=== PATIENT | female | born 1970 ===

== ENCOUNTER 2017-01-19 12:48 | Emergency (ER) | payer BC ==
--- NOTE | 2017-01-19 16:30 | UC ---
Henry Garland Benjamin, scribed for Alexander Enriquez MD on 01/19/17 at 1522 . Respiratory Complaint HPI - HPI Summary HPI Summary: 46 yo female c/o sinus pressure, behind her eyes. Pt also reports feeling weak, nauseous, and coughing up yellow phlegm. Denies fever, chills, or sore throat. Pt has sinus infections with similar symptoms twice before. - History of Current Complaint Chief Complaint: UCRespiratory Stated Complaint: SINUS/FACIAL PAIN, NAUSEAUS Time Seen by Provider: 01/19/17 14:56 Hx Obtained From: Patient Onset/Duration: Sudden Onset, Lasting Days, Still Present Severity Initially: Mild Severity Currently: Moderate Character: Cough: Productive - yellow Aggravating Factors: Nothing Alleviating Factors: Nothing Associated Signs And Symptoms: Positive: Nasal Congestion, Sinus Discomfort. Negative: Fever, Chills - Allergies/Home Medications Allergies/Adverse Reactions: Allergies Allergy/AdvReac Type Severity Reaction Status Date / Time No Known Allergies Allergy Verified 01/19/17 13:38 Home Medications: Home Medications Losartan Potassium [Cozaar] 50 mg PO 01/19/17 [History] PMH/Surg Hx/FS Hx/Imm Hx Previously Healthy: Yes - Surgical History Surgical History: None - Family History Known Family History: Positive: None Negative: Cardiac Disease, Hypertension, Diabetes - Social History Alcohol Use: Rare Substance Use Type: None Smoking Status (MU): Never Smoked Tobacco Review of Systems Constitutional: Negative Skin: Negative Eyes: Negative ENT: Nasal Discharge, Sinus Congestion, Sinus Pain/Tenderness Respiratory: Negative Cardiovascular: Negative Gastrointestinal: Negative Genitourinary: Negative Motor: Negative Neurovascular: Negative Musculoskeletal: Negative Neurological: Negative Psychological: Negative All Other Systems Reviewed And Are Negative: Yes Physical Exam Triage Information Reviewed: Yes Appearance: Well-Appearing, No Pain Distress, Well-Nourished Vital Signs: Initial Vital Signs Temp 98.7 F 01/19/17 13:35 Pulse 74 01/19/17 13:35 Resp 18 01/19/17 13:35 BP 127/70 01/19/17 13:35 Pulse Ox 100 01/19/17 13:35 Vital Signs Reviewed: Yes Eyes: Positive: Conjunctiva Clear ENT: Positive: Hearing grossly normal, Pharynx normal, Nasal congestion - rhinorrhea, Nasal drainage - rhinorrhea, TMs normal. Negative: Tonsillar swelling, Tonsillar exudate, Muffled/hoarse voice Neck: Positive: Supple, Nontender Respiratory: Positive: Chest non-tender, Lungs clear, Normal breath sounds Cardiovascular: Positive: RRR, No Murmur Musculoskeletal: Positive: Strength Intact, ROM Intact Neurological: Positive: Alert Psychological: Positive: Age Appropriate Behavior Skin: Negative: rashes UC Diagnostic Evaluation - Laboratory O2 Sat by Pulse Oximetry: 100 Respiratory Course/Dx - Course Course Of Treatment: Reviewed medications list. RX AUGMENTIN - Differential Dx/Diagnosis Provider Diagnoses: SINUSITIS Discharge - Discharge Plan Condition: Stable Disposition: HOME Prescriptions: Amoxicillin/Clavulanate TAB* [Augmentin TAB 875*] 875 mg PO BID #20 tab Patient Education Materials: Sinusitis (ED) Referrals: [facility] [Outside] No Primary Care Phys,NOPCP [Primary Care Provider] - Additional Instructions: FOLLOW UP WITH YOUR DOCTOR. GET RECHECKED FOR ANY WORSENING OF YOUR CONDITION OR QUESTIONS OR CONCERNS. The documentation as recorded by the Henry luna Benjamin accurately reflects the service I personally performed and the decisions made by me, Alexander Enriquez MD.
== END 2017-01-19 15:24 | disposition home or self-care (01) ==
LOC: UCEAST 12:48
DX: J32.9 Chronic sinusitis, unspecified (principal)
CPT/HCPCS: 99202; G0463